=== PATIENT | male | born 1940 | race American Indian/Alaskan Native ===

== ENCOUNTER 2022-07-30 05:46 | Observation (INO) | payer MEDICARE, OTHER ==
[2022-07-25 10:57] LABS: Hemoglobin 14.4 gm/dl (11.8-15.2); Mean Corpuscular HGB Conc 33 % (32-34); Mean Corpuscular Volume 85 fl (84-94); Platelet Count 201 K/mm3 (140-440); Red Blood Count 5.21 M/mm3 (3.65-5.03)
--- NOTE | 2022-07-25 11:32 | Anesthesia Consultation ---
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 Has already stopped ASA as of 07/25/22. Recent preop cardiology eval reviewed. Cardiac MRI 02/2022: EF 48%, normal LV and RV size, 31% LV scar.
[2022-07-25 11:49] LABS: Alanine Aminotransferase 19 units/L (7-56); Albumin 3.8 g/dL (3.9-5); BUN/Creatinine Ratio 19; Blood Urea Nitrogen 17 mg/dL (9-20); Calcium 9.3 mg/dL (8.4-10.2); Hemolysis Index 4
[2022-07-30] MEDS ORDERED: ACETAMINOPHEN 325 MG TAB PO SCH (06:00)
[2022-07-30] MEDS ORDERED: LACTATED RINGERS 1,000 ML IV SCH (06:00)
[2022-07-30] MEDS ORDERED: GENTAMICIN/NS 80 MG/100 ML 100 ML IV ONE ×2 (07:25→09:00)
[2022-07-30] MEDS ORDERED: rifAMPin 600 MG VIAL ONE (07:26)
[2022-07-30] MEDS ORDERED: HYDROmorphone 1 MG/1 ML INJ ONE (07:26)
[2022-07-30] MEDS ORDERED: LIDOCAINE MPF (2%) 20 MG/1 ML VIAL 5 ML ONE (07:26)
[2022-07-30] MEDS ORDERED: propofoL 200 MG/20 ML VIAL IV ONE (07:26)
[2022-07-30] MEDS ORDERED: SODIUM CHLORIDE 0.9% 500 ML 500 ML ONE (07:26)
[2022-07-30] MEDS ORDERED: NEOMY 40 MG/POLYMYXIN B 200,000 UNITS/ML (GU) AMPULE IR ONE ×2 (07:26→10:00)
[2022-07-30] MEDS ORDERED: ONDANSETRON 4 MG/2 ML INJ IV PRN ×2 (07:36→09:52)
[2022-07-30] MEDS ORDERED: HYDROmorphone 0.5 MG/0.5 ML INJ IV PRN ×2 (07:36)
--- NOTE | 2022-07-30 07:36 | Anesthesia Day of Surgery ---
Anesthesia Day of Surgery - Day of Surgery Patient Examined: Yes Patient H&P Reviewed: Yes Patient is NPO: Yes
[2022-07-30] MEDS ORDERED: VANCOMYCIN/NS 1 GM/250 ML 1 GM/250 ML BAG IV NR (08:13)
[2022-07-30] MEDS ORDERED: ePHEDrine SULFATE 50 MG/1 ML INJ ONE (08:28)
[2022-07-30] MEDS ORDERED: VANCOMYCIN 1,500 MG in SODIUM CHLORIDE 0.9% 500 ML 500 ML IV ONE (08:30)
[2022-07-30] MEDS ORDERED: BUPIVACAINE/PF (0.5%) 5 MG/1 ML 30 ML VIAL INFILTRATI ONE ×2 (08:47→10:00)
--- NOTE | 2022-07-30 09:49 | Short Stay Summary ---
Short Stay Documentation Date of service: 07/30/22 - History H&P: obtained from office - Allergies and Medications Current Medications: Allergies losartan Allergy (Verified 07/25/22 13:10) Unknown pravastatin Allergy (Verified 07/25/22 13:10) Unknown Home Medications Medication Instructions Recorded Confirmed Last Taken Type Aspirin [Adult Aspirin] 81 mg PO DAILY 07/24/22 07/24/22 Unknown History Brinzolamide/Brimonidine Tart 1 drop OP TID 07/24/22 07/24/22 Unknown History [Simbrinza 1%-0.2% Eye Drops] Cholecalciferol Vit D3 [Vitamin D3 1,000 unit PO QDAY 07/24/22 07/24/22 Unknown History 1,000 UNIT TAB] Folic Acid 1 mg PO DAILY 07/24/22 07/24/22 Unknown History Furosemide [Lasix] 20 mg PO QDAY 07/24/22 07/24/22 Unknown History Green Tea [place] Extract [Green Tea 250 mg PO DAILY 07/24/22 07/24/22 Unknown History Extract] Latanoprost 0.005% [Xalatan 0.005%] 1 drop OP QPM 07/24/22 07/24/22 Unknown History Multivit-Min/FA/Lycopen/Lutein 1 each PO DAILY 07/24/22 07/24/22 Unknown History [Centrum Silver Men Tablet] Rosuvastatin Calcium 5 mg PO DAILY 07/24/22 07/24/22 Unknown History Tafamidis Meglumine [Vyndaqel] 80 mg PO DAILY 07/24/22 07/24/22 Unknown History Vitamin E 400 unit PO DAILY 07/24/22 07/24/22 Unknown History calcium polycarbophiL [Fiber Tab] 1 tab PO DAILY 07/24/22 07/24/22 Unknown History glipiZIDE [Glucotrol] 10 mg PO QDAY 07/24/22 07/24/22 Unknown History hydroCHLOROthiazide [HCTZ] 25 mg PO QDAY 07/24/22 07/24/22 Unknown History timoloL maleate [Timolol Maleate 1 drop OP BID 07/24/22 07/24/22 Unknown History 0.25%] Active Medications Acetaminophen (Acetaminophen 325 Mg Tab) 650 mg PO PREOP [facility] Stop: 07/30/22 23:59 Hydromorphone HCl (Hydromorphone 0.5 Mg/0.5 Ml Inj) 0.25 mg IV Q10MIN PRN PRN Reason: Pain, Moderate (4-6) Stop: 07/30/22 14:00 Hydromorphone HCl (Hydromorphone 0.5 Mg/0.5 Ml Inj) 0.5 mg IV Q10MIN PRN PRN Reason: Pain , Severe (7-10) Stop: 07/30/22 14:00 Lactated Ringer's (Lactated Ringers) 1,000 mls @ 100 mls/hr IV DIRECT GOLDEN Stop: 07/30/22 23:59 Vancomycin HCl 1,500 mg/ (Sodium Chloride) 530 mls @ 333.333 mls/hr IV PREOP ONE Stop: 07/30/22 10:05 Ondansetron HCl (Ondansetron 4 Mg/2 Ml Inj) 4 mg IV ONCE PRN PRN Reason: Nausea And Vomiting Stop: 07/30/22 14:00 - Brief post op/procedure progress note Date of procedure: 07/30/22 Pre-op diagnosis: ed Post-op diagnosis: other (urethral stricture) Procedure: ipp Anesthesia: GETA Surgeon: XIANG CASTLE Pathology: none Condition: stable - Hospital course Hospital course: post op info, bactrim & norco on chart dc wrap & leung done - Disposition Condition at discharge: Stable Disposition: 30 STILL A PATIENT Short Stay Discharge Plan Follow up with: PRIMARY CARE, [Primary Care Provider] - 7 Days
[2022-07-30] MEDS ORDERED: ONDANSETRON 4 MG/2 ML INJ ONE (09:51)
[2022-07-30] MEDS ORDERED: ACETAMINOPHEN 325 MG TAB PO PRN (09:52)
[2022-07-30] MEDS ORDERED: MORPHINE 4 MG/1 ML INJ IV PRN (09:52)
[2022-07-30] MEDS ORDERED: NALOXONE 0.4 MG/1 ML INJ IV PRN (09:52)
[2022-07-30] MEDS ORDERED: ROSUVASTATIN CALCIUM 5 MG PO SCH (10:00)
[2022-07-30] MEDS ORDERED: GENTAMICIN 40 MG/ML VIAL 2 ML IM ONE (10:00)
[2022-07-30] MEDS ORDERED: TAFAMIDIS MEGLUMINE 20 MG PO SCH (10:00)
[2022-07-30] MEDS ORDERED: NON-FORMULARY EACH (Folic Acid [Folic Acid] 1 MG Tablet) PO SCH (10:00)
[2022-07-30] MEDS ORDERED: rifAMPin 600 MG VIAL IV ONE (10:00)
[2022-07-30] MEDS ORDERED: SODIUM CHLORIDE 0.9% 500 ML IVPB IRRIGATION ONE (10:00)
[2022-07-30] MEDS ORDERED: WATER FOR IRRIG STERILE 1,000 ML BOTTLE IR ONE (10:00)
[2022-07-30] MEDS ORDERED: SODIUM CHLORIDE 0.9% IRR 1,500 ML BOTTLE IR ONE (10:00)
--- NOTE | 2022-07-30 10:27 | Operative Report ---
DATE OF SURGERY: 07/30/2022 PREOPERATIVE DIAGNOSIS: Erectile dysfunction. POSTOPERATIVE DIAGNOSIS: Erectile dysfunction and redundant scrotal skin. PROCEDURES: Insertion of inflatable penile prosthesis (Coloplast 22 cm), pharmacologic injection of medication into the corporal body and scrotoplasty. SURGEON: Juarez Macedo MD. SYRUP MAKER COOK: Ophelia Botello. ANESTHESIA: General. ESTIMATED BLOOD LOSS: Minimal. FLUIDS: Crystalloid. COMPLICATIONS: No complications. INDICATIONS: This patient is an 82-year-old gentleman known to our service, had a history of prostate cancer treated with seeds by Dr. Fonseca, and he continues to have refractory erectile dysfunction. We reviewed options, he agreed to proceed with surgical intervention. Risks, benefits and complications were explained. DESCRIPTION OF PROCEDURE: The patient was taken to the operative suite and placed in a supine position. After adequate general anesthesia, he was prepped and draped in a sterile fashion. Attempts at a Hodge catheter was unsuccessful. He had a history of a stricture in the past. A 0.035 Glidewire was placed without difficulty and a 16-[place] tip catheter was then advanced without difficulty and clear urine returned. The 10 mL Marcaine dorsal penile block was performed at the base of the penis and 50 mL of Marcaine was injected into the corporal body. No curvature or plaque could be appreciated. A transscrotal incision was made with a Bovie. Sharp dissection was taken down to the corporal bodies and 2-0 Vicryl stay sutures were placed. Corporotomies were made bilaterally. Gentle dilation was performed. Total measurements of 22 cm. A 22 cm Coloplast Titan device was prepped, 125 mL reservoir was prepped also and placed in the retropubic space via the right external ring, and 100 mL of saline was placed in the reservoir without difficulty. The cylinders were placed in the corporal bodies with the aid of a Dre needle; 2-0 Vicryl running stitch was used to close the corporotomies bilaterally. The pump and the reservoir was connected with the quick click connection system. Insufflation revealed an excellent cosmetic appearance. The pump was then placed in the dependent portion of the scrotum. A 2-0 Vicryl pursestring suture was used to secure the pump in the dependent portion as well as close the dartos layer. A second layer using 2-0 Vicryl running stitch was then placed. Scrotoplasty was performed removing redundant skin. A 3-0 Vicryl in an interrupted fashion was placed in the skin, collodion and Xeroform gauze as well as a mummy wrap. The patient tolerated the procedure well. Ophelia Botello was present at the bedside throughout the procedure to assist with surgical dissection. TID: [id number] RECEIPT: [id number] [facility]
[2022-07-30] MEDS ORDERED: SODIUM CHLORIDE 0.45% 1000 ML 1,000 ML IV SCH (12:00)
[2022-07-30] MEDS: ceFAZolin/NS 1 GM/50 ML 1 GM/50 ML BAG IV SCH (14:51)
[2022-07-30] MEDS: CALCIUM POLYCARBOPHIL 625 MG TAB PO SCH (14:51)
[2022-07-30] MEDS: hydroCHLOROthiazide 25 MG TAB PO SCH (14:52)
[2022-07-30] MEDS: FUROSEMIDE 20 MG TAB PO SCH (14:52)
[2022-07-30] MEDS: glipiZIDE 10 MG TAB PO SCH (14:52)
[2022-07-30] MEDS: CHOLECALCIFEROL (VIT D3) 1000 UNIT (25 mcg) TAB PO SCH (14:52)
--- NOTE | 2022-07-30 15:59 | Post Anesthesia Evaluation ---
- Post Anesthesia Evaluation Patient Participated: Yes Airway Patent: Yes Stable Respiratory Function: Yes Nausea/Vomiting: No Temp > 96.8F: Yes Pain Manageable: Yes Adequeate Hydration: Yes Anesthesia Complications: No Block Receding Appropriately: Not Applicable Patient on Ventilator: No
[2022-07-30] MEDS: HYDROcodone/ACETAMINOPHEN 5-325 MG TAB PO PRN ×2 (16:47→23:02)
[2022-07-30] MEDS ORDERED: LATANOPROST 0.005% OPHTH SOLN 2.5 ML OU SCH ×2 (18:00)
[2022-07-30] MEDS: BRIMONIDINE TART OP SCH (18:23)
[2022-07-30] MEDS: BRINZOLAMIDE OP SCH (18:23)
[2022-07-30] MEDS: [UNRECOGNIZED DRUG - OTHER] OP SCH (18:23)
[2022-07-30] MEDS: TIMOLOL MALEATE OP SCH (18:24)
--- NOTE | 2022-07-30 20:53 | Consultation ---
History of Present Illness - Reason for Consult Consult date: 07/30/22 Medical management Requesting physician: XIANG CASTLE - History of Present Illness 82-year-old male with hypertension, diabetes admitted for urologic surgery. Consult placed for medical management. Patient seen and evaluated upon arrival to his room. Patient fever, chills, chest pain, palpitation, adductive cough, skin rash, recent contact, known exposure to COVID-19. Patient resting comf ortably. No reported pain. Past History Past Medical History: diabetes, hypertension Past Surgical History: Other (Urologic surgery) Social history: , lives with family. denies: smoking, alcohol abuse, prescription drug abuse Family history: hypertension Medications and Allergies Allergies Allergy/AdvReac Type Severity Reaction Status Date / Time losartan Allergy Unknown Verified 07/25/22 13:10 pravastatin Allergy Unknown Verified 07/25/22 13:10 Home Medications Medication Instructions Recorded Confirmed Last Taken Type Aspirin [Adult Aspirin] 81 mg PO DAILY 07/24/22 07/30/22 07/23/22 History Brinzolamide/Brimonidine Tart 1 drop OP TID 07/24/22 07/24/22 07/29/22 History [Simbrinza 1%-0.2% Eye Drops] Cholecalciferol Vit D3 [Vitamin D3 1,000 unit PO QDAY 07/24/22 07/24/22 07/29/22 History 1,000 UNIT TAB] Folic Acid 1 mg PO DAILY 07/24/22 07/24/22 07/29/22 History Furosemide [Lasix] 20 mg PO QDAY 07/24/22 07/24/22 07/29/22 History Green Tea [place] Extract [Green Tea 250 mg PO DAILY 07/24/22 07/24/22 07/29/22 History Extract] Latanoprost 0.005% [Xalatan 0.005%] 1 drop OP QPM 07/24/22 07/24/22 07/29/22 History Multivit-Min/FA/Lycopen/Lutein 1 each PO DAILY 07/24/22 07/24/22 07/29/22 History [Centrum Silver Men Tablet] Rosuvastatin Calcium 5 mg PO DAILY 07/24/22 07/24/22 07/29/22 History Tafamidis Meglumine [Vyndaqel] 80 mg PO DAILY 07/24/22 07/24/22 07/29/22 History Vitamin E 400 unit PO DAILY 07/24/22 07/24/22 07/29/22 History calcium polycarbophiL [Fiber Tab] 1 tab PO DAILY 07/24/22 07/24/22 07/29/22 History glipiZIDE [Glucotrol] 10 mg PO QDAY 07/24/22 07/24/22 07/29/22 History hydroCHLOROthiazide [HCTZ] 25 mg PO QDAY 07/24/22 07/24/22 07/29/22 History timoloL maleate [Timolol Maleate 1 drop OP BID 07/24/22 07/24/22 07/29/22 History 0.25%] Active Meds: Active Medications Acetaminophen (Acetaminophen 325 Mg Tab) 650 mg PO PREOP [facility] Stop: 07/30/22 23:59 Acetaminophen (Acetaminophen 325 Mg Tab) 650 mg PO Q4H PRN PRN Reason: Pain MILD(1-3)/Fever >100.5/TUTTLE Hydrocodone Bitart/Acetaminophen (Hydrocodone/Acetaminophen 5-325 Mg Tab) 2 each PO Q6H PRN PRN Reason: Pain, Moderate (4-6) Last Admin: 07/30/22 16:47 Dose: 2 each Atorvastatin Calcium (Atorvastatin 10 Mg Tab) 10 mg PO QHS [facility] Calcium Polycarbophil (Calcium Polycarbophil 625 Mg Tab) 625 mg PO DAILY [facility] Last Admin: 07/30/22 14:51 Dose: 625 mg Cholecalciferol (Cholecalciferol (Vit D3) 1000 Unit (25 Mcg) Tab) 1,000 unit PO QDAY [facility] Last Admin: 07/30/22 14:52 Dose: 1,000 unit Folic Acid (Folic Acid 1 Mg Tab) 1 mg PO DAILY [facility] Furosemide (Furosemide 20 Mg Tab) 20 mg PO QDAY [facility] Last Admin: 07/30/22 14:52 Dose: 20 mg Glipizide (Glipizide 10 Mg Tab) 10 mg PO QDAY [facility] Last Admin: 07/30/22 14:52 Dose: 10 mg Hydrochlorothiazide (Hydrochlorothiazide 25 Mg Tab) 25 mg PO QDAY [facility] Last Admin: 07/30/22 14:52 Dose: 25 mg Lactated Ringer's (Lactated Ringers) 1,000 mls @ 100 mls/hr IV DIRECT GOLDEN Stop: 07/30/22 23:59 Last Admin: 07/30/22 07:15 Dose: 100 mls/hr Sodium Chloride (Nacl 0.45% 1000 Ml) 1,000 mls @ 100 mls/hr IV DIRECT GOLDEN Cefazolin Sodium (Ancef/Ns 1 Gm/50 Ml) 1 gm in 50 mls @ 100 mls/hr IV Q8H [facility]; Protocol Last Admin: 07/30/22 14:51 Dose: 100 mls/hr Latanoprost (Latanoprost 0.005% Ophth Soln 2.5 Ml) 1 drops OU QPM [facility] Last Admin: 07/30/22 18:24 Dose: 1 drops Miscellaneous Medication (Brinzolamide/Brimonidine Tart [Simbrinza 1%-0.2% Eye Drops]) 1 drop OP TID [facility] Last Admin: 07/30/22 18:23 Dose: 1 drop Miscellaneous Medication (Timolol Maleate [Timolol Maleate 0.25%]) 1 drop OP BID [facility] Last Admin: 07/30/22 18:24 Dose: 1 drop Miscellaneous Medication (Tafamidis Meglumine [Vyndaqel]) 80 mg PO DAILY [facility] Morphine Sulfate (Morphine 4 Mg/1 Ml Inj) 4 mg IV Q4H PRN PRN Reason: Pain , Severe (7-10) Naloxone HCl (Naloxone 0.4 Mg/1 Ml Inj) 0.1 mg IV Q2MIN PRN PRN Reason: Res Rate </= 8 or 02 SAT < 92% Ondansetron HCl (Ondansetron 4 Mg/2 Ml Inj) 4 mg IV Q8H PRN PRN Reason: Nausea And Vomiting Sodium Chloride (Sodium Chloride 0.9% 10 Ml Flush Syringe) 10 ml IV BID [facility] Last Admin: 07/30/22 14:51 Dose: 10 ml Sodium Chloride (Sodium Chloride 0.9% 10 Ml Flush Syringe) 10 ml IV PRN PRN PRN Reason: LINE FLUSH Review of Systems Constitutional: no weight loss, no weight gain, no fever, no sweats, no night sweats Ears, nose, mouth and throat: no ear pain, no ear discharge, no decreased hearing, no nose pain, no nasal discharge, no sinus pressure Cardiovascular: no chest pain, no palpitations, no edema, no lightheadedness Respiratory: no cough, no excessive sputum, no hemoptysis, no shortness of vishnu th Gastrointestinal: no abdominal pain, no constipation Genitourinary Male: no hematuria, no urinary hesitancy, no erectile dysfunction Rectal: no pain, no incontinence Musculoskeletal: no neck stiffness, no shooting arm pain, no low back pain, no shooting leg pain, no leg numbness/tingling Integumentary: no rash, no sores, no jaundice Neurological: no head injury, no paralysis, no parathesias, no tingling, no syncope, no tremors Psychiatric: no anxiety, no change in sleep habits, no hypersomnia, no change in libido, no suicidal ideation Endocrine: no cold intolerance, no polyphagia, no polydipsia, no nocturia Hematologic/Lymphatic: no easy bruising, no easy bleeding, no lymphadenopathy Exam - Constitutional Vitals: Temp Pulse Resp BP Pulse Ox 97.6 F 69 16 156/93 97 07/30/22 10:02 07/30/22 11:00 07/30/22 11:00 07/30/22 11:00 07/30/22 11:00 General appearance: Present: no acute distress, well-nourished - EENT Eyes: Present: PERRL ENT: hearing intact, clear oral mucosa - Neck Neck: Present: supple, normal ROM - Respiratory Respiratory effort: normal Respiratory: bilateral: CTA - Cardiovascular Heart Sounds: Present: S1 & S2. Absent: rub, click - Extremities Extremities: pulses symmetrical, No edema Peripheral Pulses: within normal limits - Abdominal General gastrointestinal: Present: soft, non-tender, non-distended, normal bowel sounds Male genitourinary: Present: normal - Integumentary Integumentary: Present: clear, warm, dry - Musculoskeletal Musculoskeletal: gait normal, strength equal bilaterally - Psychiatric Psychiatric: appropriate mood/affect, intact judgment & insight - Neurologic Neurologic: CNII-XII intact, moves all extremities Results - Labs CBC & Chem 7: 07/25/22 00:01 07/25/22 00:01 Labs: Abnormal lab results 07/30/22 07/30/22 Range/Units 07:13 10:14 POC Glucose 141 H 109 H (70-105) mg/dL Assessment and Plan - Patient Problems (1) Hypertension Current Visit: Yes Status: Acute Qualifiers: Hypertension type: primary hypertension Qualified Code(s): I10 - Essential (primary) hypertension Plan to address problem: Monitor blood pressure every shift, continue medical management. (2) Diabetes Current Visit: Yes Status: Acute Plan to address problem: Consistent carbohydrate diet, Accu-Chek, protocol, hypoglycemia protocol. Resume home medication at discharge. (3) Advance care planning Current Visit: Yes Status: Acute Plan to address problem: Disease education done, care plan discussed, diagnoses discussed, prognosis discussed, patient acknowledges understanding and agreement with care plan, +30 minutes. (4) Preventative health care Current Visit: Yes Status: Acute Plan to address problem: Patient counseled regarding home safety precautions, outpatient follow-up with primary care physician for all age and risk factor appropriate screening test. +30 minutes.
[2022-07-31] MEDS: [UNRECOGNIZED DRUG - OTHER] OP SCH ×2 (00:43→09:00)
[2022-07-31] MEDS: BRINZOLAMIDE OP SCH ×2 (00:43→09:00)
[2022-07-31] MEDS: BRIMONIDINE TART OP SCH ×2 (00:43→09:00)
[2022-07-31] MEDS: TIMOLOL MALEATE OP SCH ×2 (00:44→09:00)
[2022-07-31] MEDS: ceFAZolin/NS 1 GM/50 ML 1 GM/50 ML BAG IV SCH ×2 (01:07→06:53)
[2022-07-31] MEDS: HYDROcodone/ACETAMINOPHEN 5-325 MG TAB PO PRN (05:13)
[2022-07-31 05:40] VITALS: BP 122/63
[2022-07-31] MEDS: glipiZIDE 10 MG TAB PO SCH (08:59)
[2022-07-31] MEDS: FUROSEMIDE 20 MG TAB PO SCH (08:59)
[2022-07-31] MEDS: CHOLECALCIFEROL (VIT D3) 1000 UNIT (25 mcg) TAB PO SCH (08:59)
[2022-07-31] MEDS: CALCIUM POLYCARBOPHIL 625 MG TAB PO SCH (09:00)
[2022-07-31] MEDS: hydroCHLOROthiazide 25 MG TAB PO SCH (09:00)
[2022-07-31] MEDS ORDERED: FOLIC ACID 1 MG TAB PO SCH (10:00)
== END 2022-07-31 12:30 | disposition home or self-care (01) ==
LOC: OR 05:46 → 3A 09:53
PROVIDERS: ADMIT Urology; ATTEND Urology
DX: N52.01 Erectile dysfunction due to arterial insufficiency (principal); Z20.822 Contact with and (suspected) exposure to COVID-19; I10 Essential (primary) hypertension; E11.9 Type 2 diabetes mellitus without complications; Z79.899 Other long term (current) drug therapy; Z98.890 Other specified postprocedural states; Z79.82 Long term (current) use of aspirin
CPT/HCPCS: 36415; 54405; 80053; 82962; 85027; 88302; 96365; 96366; 96375; C1769; C1813; G0378; G0379; J0690; J1170; J1580; J2270; J2704; J3370; J3490; J7030; J7040; J7120; U0003; J2405

== ENCOUNTER 2022-08-01 22:06 | Emergency (ER) | payer MEDICARE, OTHER ==
[2022-08-02] MEDS ORDERED: HYDROcodone/ACETAMINOPHEN 5-325 MG TAB PO ONE (05:56)
[2022-08-02 06:42] LABS: Color,Urine Colorless (Yellow)
[2022-08-02 06:44] LABS: Bacteria,Urine 1+ /HPF (Negative)
[2022-08-02] MEDS ORDERED: MIDAZOLAM 2 MG/2 ML INJ ONE (06:54)
--- NOTE | 2022-08-02 07:14 | Ultrasound Report ---
ULTRASOUND SCROTUM INDICATION / CLINICAL INFORMATION: scrotal pain swelling r/o torsion. Patient had penile implant placed recently. COMPARISON: None available. FINDINGS -- RIGHT TESTIS: Size = 3.8 x 2.5 x 2.4 cm. - Appearance: No significant abnormality. - Cyst or Mass: None. - Color Doppler Flow: No significant abnormality. EPIDIDYMIS: No significant abnormality. HYDROCELE: Small right hydrocele. The fluid contains some internal debris. VARICOCELE: None demonstrated. FINDINGS -- LEFT TESTIS: Size = 3.8 x 2.6 x 2.4 cm. - Appearance: No significant abnormality. - Cyst or Mass: None. - Color Doppler Flow: No significant abnormality. EPIDIDYMIS: No significant abnormality. HYDROCELE: Small left hydrocele present. There are a few internal septations within the fluid. VARICOCELE: None demonstrated. ADDITIONAL FINDINGS: There is diffuse thickening of the scrotal skin. Additionally, on the right side of the penile implant there is a heterogeneous masslike area with hypervascularity. This masslike ar ea measures 1.7 x 1.5 cm. IMPRESSION: 1. No evidence of testicular torsion or testicular mass. 2. Masslike heterogeneous hypervascular area is seen immediately adjacent and to the right of the pen ile implant. This area measures 1.7 x 1.5 cm. Etiology is unclear. Appearance could be indicative of focal cellulitis and clinical correlation is recommended. 3. Small bilateral hydroceles. 4. Diffuse thickening of the scrotal skin. Signer Name: Alondra Quijano MD Signed: 08/02/2022 7:09 AM Workstation Name: [id number]
[2022-08-02 08:18] LABS: Hematocrit 40.5 % (35.5-45.6); Hemoglobin 13.5 gm/dl (11.8-15.2); Mean Corpuscular HGB Conc 33 % (32-34); Mean Corpuscular Volume 85 fl (84-94); Platelet Count 180 K/mm3 (140-440); Red Cell Distribution Width 13.6 % (13.2-15.2)
--- NOTE | 2022-08-02 09:19 | Emergency Department Report ---
ED Male HPI - General Chief complaint: Urogenital-Male Stated complaint: POST SURGERY COMPLICATIONS Time Seen by Provider: 08/02/22 07:12 Source: patient Mode of arrival: Ambulatory Limitations: No Limitations - History of Present Illness Initial comments: 82-year-old black male with a past medical history of hypertension, diabetes, and hyperlipidemia presents to the emergency department for evaluation of 1 day history of scrotal pain and swelling along with dysuria. He states that on Saturday 2 days ago, he had a penile implant placed by Dr. Macedo of [facility] then developed pain and swelling to the scrotum 1 day ago along with dysuria. He states that when he attempts to urinate, it is difficult to start and when it does start there is a little burning and pain. He states that he has severe pain whenever he walks around or attempts to get up since he had his procedure. He denies fever, abdominal pain, nausea, vomiting, and penile discharge. MD Complaint: dysuria, other (Scrotal pain and swelling) -: Gradual, days(s) (2) Location: right testicle, left testicle Radiation: none Severity: severe Severity scale (0 -10): 9 Quality: aching Worsens with: movement recent surgery swelling, dysuria. denies: discharge, mass, rash, urinary retention, blood in urine, fever, nausea/vomiting, incontinence - Related Data Home Medications Medication Instructions Recorded Confirmed Last Taken Aspirin [Adult Aspirin] 81 mg PO DAILY 07/24/22 07/30/22 07/23/22 Brinzolamide/Brimonidine Tart 1 drop OP TID 07/24/22 07/24/22 07/29/22 [Simbrinza 1%-0.2% Eye Drops] Cholecalciferol Vit D3 [Vitamin D3 1,000 unit PO QDAY 07/24/22 07/24/22 07/29/22 1,000 UNIT TAB] Folic Acid 1 mg PO DAILY 07/24/22 07/24/22 07/29/22 Furosemide [Lasix] 20 mg PO QDAY 07/24/22 07/24/22 07/29/22 Green Tea [place] Extract [Green Tea 250 mg PO DAILY 07/24/22 07/24/22 07/29/22 Extract] Latanoprost 0.005% [Xalatan 0.005%] 1 drop OP QPM 07/24/22 07/24/22 07/29/22 Multivit-Min/FA/Lycopen/Lutein 1 each PO DAILY 07/24/22 07/24/22 07/29/22 [Centrum Silver Men Tablet] Rosuvastatin Calcium 5 mg PO DAILY 07/24/22 07/24/22 07/29/22 Tafamidis Meglumine [Vyndaqel] 80 mg PO DAILY 07/24/22 07/24/22 07/29/22 Vitamin E 400 unit PO DAILY 07/24/22 07/24/22 07/29/22 calcium polycarbophiL [Fiber Tab] 1 tab PO DAILY 07/24/22 07/24/22 07/29/22 glipiZIDE [Glucotrol] 10 mg PO QDAY 07/24/22 07/24/22 07/29/22 hydroCHLOROthiazide [HCTZ] 25 mg PO QDAY 07/24/22 07/24/22 07/29/22 timoloL maleate [Timolol Maleate 1 drop OP BID 07/24/22 07/24/22 07/29/22 0.25%] Previous Rx's Medication Instructions Recorded Last Taken Type Ciprofloxacin HCl 500 mg PO BID 7 Days #14 tab 08/02/22 Unknown Rx Allergies Allergy/AdvReac Type Severity Reaction Status Date / Time losartan Allergy Unknown Verified 07/25/22 13:10 pravastatin Allergy Unknown Verified 07/25/22 13:10 ED Review of Systems ROS: Stated complaint: POST SURGERY COMPLICATIONS Other details as noted in HPI Comment: All other systems reviewed and negative Constitutional: denies: chills, fever Respiratory: denies: shortness of breath Cardiovascular: denies: chest pain, palpitations Gastrointestinal: denies: abdominal pain, nausea, vomiting Genitourinary: dysuria, testicular pain. 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) Hx Diabetes: Yes Hx Liver Disease: No Hx Renal Disease: No Hx Tuberculosis: Yes (50 YRS AGO-TOOK [place] , NEG CXR) - Surgical History Past Surgical History?: Yes Additional Surgical History: PENILE IMPLANT 07/2022 - Social History Smoking Status: Unknown if ever smoked - Medications Home Medications: Home Medications Medication Instructions Recorded Confirmed Last Taken Type Aspirin [Adult Aspirin] 81 mg PO DAILY 07/24/22 07/30/22 07/23/22 History Brinzolamide/Brimonidine Tart 1 drop OP TID 07/24/22 07/24/22 07/29/22 History [Simbrinza 1%-0.2% Eye Drops] Cholecalciferol Vit D3 [Vitamin D3 1,000 unit PO QDAY 07/24/22 07/24/22 07/29/22 History 1,000 UNIT TAB] Folic Acid 1 mg PO DAILY 07/24/22 07/24/22 07/29/22 History Furosemide [Lasix] 20 mg PO QDAY 07/24/22 07/24/22 07/29/22 History Green Tea [place] Extract [Green Tea 250 mg PO DAILY 07/24/22 07/24/22 07/29/22 History Extract] Latanoprost 0.005% [Xalatan 0.005%] 1 drop OP QPM 07/24/22 07/24/22 07/29/22 History Multivit-Min/FA/Lycopen/Lutein 1 each PO DAILY 07/24/22 07/24/22 07/29/22 History [Centrum Silver Men Tablet] Rosuvastatin Calcium 5 mg PO DAILY 07/24/22 07/24/22 07/29/22 History Tafamidis Meglumine [Vyndaqel] 80 mg PO DAILY 07/24/22 07/24/22 07/29/22 History Vitamin E 400 unit PO DAILY 07/24/22 07/24/22 07/29/22 History calcium polycarbophiL [Fiber Tab] 1 tab PO DAILY 07/24/22 07/24/22 07/29/22 History glipiZIDE [Glucotrol] 10 mg PO QDAY 07/24/22 07/24/22 07/29/22 History hydroCHLOROthiazide [HCTZ] 25 mg PO QDAY 07/24/22 07/24/22 07/29/22 History timoloL maleate [Timolol Maleate 1 drop OP BID 07/24/22 07/24/22 07/29/22 History 0.25%] Ciprofloxacin HCl 500 mg PO BID 7 Days #14 tab 08/02/22 Unknown Rx ED Physical Exam - General Limitations: No Limitations General appearance: alert, in no apparent distress - Head Head exam: Present: atraumatic, normocephalic - Eye Eye exam: Present: normal appearance - Neck Neck exam: Present: normal inspection, full ROM. Absent: tenderness, lymphadenopathy - Respiratory Respiratory exam: Present: normal lung sounds bilaterally. Absent: respiratory distress, wheezes, rales, rhonchi, stridor, chest wall tenderness - Cardiovascular Cardiovascular Exam: Present: regular rate, normal heart sounds - GI/Abdominal GI/Abdominal exam: Present: soft, normal bowel sounds. Absent: distended, tenderness, guarding, rebound, rigid - exam: Present: testicular tenderness, scrotal swelling, other (Sutures noted to mid testicular area. Well approximated no drainage noted. Area tender to touch) - Extremities Exam Extremities exam: Present: normal inspection, full ROM, normal capillary refill. Absent: pedal edema, joint swelling, calf tenderness - Back Exam Back exam: Present: normal inspection. Absent: CVA tenderness (R), CVA tenderness (L) - Neurological Exam Neurological exam: Present: alert, oriented X3 - Psychiatric Psychiatric exam: Present: normal affect, normal mood - Skin Skin exam: Present: warm, dry, normal color ED Course Vital Signs 08/01/22 22:37 Temperature 98.6 F Pulse Rate 80 Respiratory 20 Rate Blood Pressure 143/80 O2 Sat by Pulse 95 Oximetry ED Medical Decision Making - Lab Data Result diagrams: 08/02/22 07:20 - Radiology Data Radiology results: report reviewed, image reviewed Scrotal ultrasound: FINDINGS -- RIGHT TESTIS: Size = 3.8 x 2.5 x 2.4 cm. - Appearance: No significant abnormality. - Cyst or Mass: None. - Color Doppler Flow: No significant abnormality. EPIDIDYMIS: No significant abnormality. HYDROCELE: Small right hydrocele. The fluid contains some internal debris. VARICOCELE: None demonstrated. FINDINGS -- LEFT TESTIS: Size = 3.8 x 2.6 x 2.4 cm. - Appearance: No significant abnormality. - Cyst or Mass: None. - Color Doppler Flow: No significant abnormality. EPIDIDYMIS: No significant abnormality. HYDROCELE: Small left hydrocele present. There are a few internal septations within the fluid. VARICOCELE: None demonstrated. ADDITIONAL FINDINGS: There is diffuse thickening of the scrotal skin. Additionally, on the right side of the penile implant there is a heterogeneous masslike area with hypervascularity. This masslike area measures 1.7 x 1.5 cm. IMPRESSION: 1. No evidence of testicular torsion or testicular mass. 2. Masslike heterogeneous hypervascular area is seen immediately adjacent and to the right of the penile implant. This area measures 1.7 x 1.5 cm. Etiology is unclear. Appearance could be indicative of focal cellulitis and clinical correlation is recommended. 3. Small bilateral hydroceles. 4. Diffuse thickening of the scrotal skin. - Medical Decision Making 82-year-old black male with a past medical history of hypertension, diabetes, and hyperlipidemia presents to the emergency department for evaluation of 1 day history of scrotal pain and swelling along with dysuria. He states that on Saturday 2 days ago, he had a penile implant placed by Dr. Macedo of [facility] then developed pain and swelling to the scrotum 1 day ago along with dysuria. He states that when he attempts to urinate, it is difficult to start and when it does start there is a little burning and pain. He states that he has severe pain whenever he walks around or attempts to get up since he had his procedure. He denies fever, abdominal pain, nausea, vomiting, and penile discharge. Patient noted to have sutures still in place status post penile implant 3 days ago. Sutures are well approximated, no drainage noted, tender to touch. Urine positive for urinary tract infection. Ultrasound scrotum/testicles without any acute abnormalities noted. Patient will be discharged home with 7-day course of Cipro and advised to follow-up with urology as planned. He is advised to return to the emergency department as needed. He verbalizes understanding of and agreement with plan of care. Laboratory Results - last 24 hr 08/02/22 08/02/22 07:20 Unknown WBC 8.4 RBC 4.80 Hgb 13.5 Hct 40.5 MCV 85 MCH 28 MCHC 33 RDW 13.6 Plt Count 180 [place] % (Auto) Assistant Cook Urine Color Colorless Urine Turbidity Clear Specific [place] (Man) 1.005 Ur Protein (Man) 1+ Ur Ketones (Man) Negative Ur Nitrite (Man) Negative Urine Bilirubin (Man) Negative Leukocyte Esterase (Man) Small Urine WBC (Auto) 22.0 H Urine RBC (Auto) 3.0 U Epithel Cells (Auto) 1.0 Urine Bacteria (Auto) 1+ Urine RBC (Manual) 5+ Critical care attestation.: If time is entered above; I have spent that time in minutes in the direct care of this critically ill patient, excluding procedure time. ED Disposition Clinical Impression: Testicular/scrotal pain UTI (urinary tract infection) Qualifiers: Urinary tract infection type: acute cystitis Hematuria presence: without hematuria Qualified Code(s): N30.00 - Acute cystitis without hematuria Disposition: HOME / SELF CARE / HOMELESS Is pt being admited?: No Does the pt Need Aspirin: No Condition: Stable Instructions: Antibiotic Medicine, Adult, [id number], Urinary Tract Infection, Adult, [id number] Additional Instructions: Take medications as prescribed. Follow-up with your urologist as planned. Return to the emergency department as needed. Prescriptions: Ciprofloxacin HCl 500 mg PO BID 7 Days #14 tab Referrals: XIANG MACEDO MD [Primary Care Provider] - 3-5 Days Time of Disposition: 09:26
[2022-08-02 10:15] VITALS: BP 141/73
[2022-08-02 12:27] LABS: Basophils % (Manual) 0 % (0.0-1.8); Eosinophils % (Manual) 0 % (0.0-4.3); Giant Platelets Few; Platelet Estimate Consistent w Auto; RBC Morphology Normal; Total Cells Counted 100
== END 2022-08-02 10:14 | disposition home or self-care (01) ==
LOC: ED 22:06
DX: N39.0 Urinary tract infection, site not specified (principal); N50.82 Scrotal pain; I10 Essential (primary) hypertension; E11.9 Type 2 diabetes mellitus without complications; A15.9 Respiratory tuberculosis unspecified; Z91.09 Other allergy status, other than to drugs and biological substances; Z79.899 Other long term (current) drug therapy
CPT/HCPCS: 36415; 81001; 85007; 85025; 87086; 93975; 99284; J2250